=== PATIENT | female | born 1980 | race American Indian/Alaskan Native ===

== ENCOUNTER 2016-10-21 12:18 | Outpatient (CLI) | payer BC ==
--- NOTE | 2016-10-22 11:50 | OP Clinic Progress Note ---
REFERRING PHYSICIAN: Dr. Yenni Kennedy REASON FOR VISIT: This 36-year-old lady has had strep throats and has taken 3 courses of antibiotics. She has had two Z-paks and then amoxicillin. The amoxicillin seemed to have some amelioration of her symptoms but did not eradicate it. She has tenderness on the left side of her neck more so than the right, fever, and general malaise. There has been a positive strep culture. She has pitted tonsils that have exudates 2+ in size bilaterally, little more on the left than on the right. There is some Peyer's patches of inflammatory lymphoid tissue in the posterior pharyngeal wall. PLAN: This has been a fairly recent duration and she has not had problems with strep throats or sore throats particularly over the last year. Again, it has been much more of a recent several weeks to 2 months problem. I recommended taking an additional course of antibiotics. Amoxicillin seemed to have a better treatment record than the azithromycin for this. In addition, she has not had GI problems or any other allergic or adverse effects from taking the antibiotics. She will take amoxicillin 500 mg 3 times a day for 3 weeks and get a renewal on this in addition. After that period, if it is not resolved, removal of the adenotonsillar tissue may be an option. cc: Dr. Yenni SOTO
== END 2016-10-21 12:20 ==
LOC: ENT 12:18
PROVIDERS: ATTEND Otolaryngology
DX: J02.0 Streptococcal pharyngitis (principal)
CPT/HCPCS: 99203